=== PATIENT | female | born 1970 | race Caucasian/White ===

== ENCOUNTER → 2021-12-06 10:15 | Outpatient (BNVA) | payer OTHER, SELFPAY | PROVIDERS: Visit Provider Nurse Practitioner Women's Health | DX: Z01.419 Encounter for gynecological examination (general) (routine) without abnormal findings (principal); Z30.431 Encounter for routine checking of intrauterine contraceptive device; R87.619 Unspecified abnormal cytological findings in specimens from cervix uteri | CPT/HCPCS: 87624 ==

== ENCOUNTER 2022-02-15 08:09 | Outpatient (CLI) | payer OTHER, SELFPAY ==
--- NOTE | 2022-02-15 08:15 | MM_ITS ---
WS: [id number] Bilateral screening 3D tomosynthesis digital mammogram, 02/15/2022 Clinical Data: Z12.39 - Encounter for other screening for malignant neop... Comparison: 10/01/2018, 03/14/2015, 03/10/2015. Findings: The breast parenchymal pattern shows fat replacement. No spiculated masses or clustered calcification s are seen. There are no secondary signs of carcinoma. MM/[id number] Impression: 1. Negative bilateral mammogram unchanged. 2. Recommend annual screening mammograms. BIRADS: 1-Negative FOLLOW UP: 1 Year Follow-up The CAD freight checker was used.
== END 2022-02-15 08:10 | disposition home or self-care (01) ==
LOC: RAD 08:09
PROVIDERS: Visit Provider Nurse Practitioner Women's Health
DX: Z12.31 Encounter for screening mammogram for malignant neoplasm of breast (principal)
CPT/HCPCS: 77063; 77067

== ENCOUNTER → 2023-06-12 16:15 | Outpatient (BNVA) | payer OTHER, SELFPAY | PROVIDERS: Visit Provider Nurse Practitioner Women's Health | DX: Z12.39 Encounter for other screening for malignant neoplasm of breast (principal); R87.619 Unspecified abnormal cytological findings in specimens from cervix uteri; N91.2 Amenorrhea, unspecified; Z01.419 Encounter for gynecological examination (general) (routine) without abnormal findings; Z30.431 Encounter for routine checking of intrauterine contraceptive device | CPT/HCPCS: 82670; 83001; 84146; 84443; 87624 ==

== ENCOUNTER 2023-07-03 15:15 | Outpatient (CLI) | payer OTHER, SELFPAY ==
--- NOTE | 2023-07-03 15:30 | MM_ITS ---
WS: [id number] Bilateral screening 3D tomosynthesis digital mammogram, 07/03/2023 Clinical Data: Z12.39 - Encounter for other screening for malignant neop... Comparison: 02/15/2022, 10/01/2018, 03/14/2015, 03/10/2015. Findings: The breast parenchymal pattern shows fat replacement. No spiculated masses or clustered calcification s are seen. There are no secondary signs of carcinoma. MM/[id number] Impression: 1. Negative bilateral mammogram unchanged. 2. Recommend annual screening mammograms. BIRADS: 1-Negative FOLLOW UP: 1 Year Follow-up The CAD checker/stocker was used.
== END 2023-07-03 15:16 | disposition home or self-care (01) ==
LOC: RAD 15:15
PROVIDERS: Visit Provider Nurse Practitioner Women's Health
DX: Z12.31 Encounter for screening mammogram for malignant neoplasm of breast (principal)
CPT/HCPCS: 77063; 77067

== ENCOUNTER → 2024-06-18 09:59 | Outpatient (BNVA) | payer OTHER, SELFPAY | PROVIDERS: Visit Provider Nurse Practitioner Women's Health | DX: N91.2 Amenorrhea, unspecified (principal); R23.2 Flushing | CPT/HCPCS: 82306; 82670; 83001 ==

== ENCOUNTER → 2024-07-22 08:03 | Outpatient (BNVA) | payer OTHER, SELFPAY | PROVIDERS: Visit Provider Nurse Practitioner Women's Health | DX: N91.2 Amenorrhea, unspecified (principal); R23.2 Flushing | CPT/HCPCS: 82670; 83001; 84439; 84443 ==